=== PATIENT | male | born 1975 | race Caucasian/White ===

== ENCOUNTER 2022-05-20 19:13 | Emergency (ER) | payer SELFPAY ==
[~2022-05-20] VITALS: Ht 167.6 cm; Wt 108.9 kg
[2022-05-20 19:40] VITALS: BP 150/85
--- NOTE | 2022-05-20 19:43 | NUR ---
TO LOBBY A/W BED AMBULATORY
--- NOTE | 2022-05-20 21:53 | NUR ---
PATIENT AMBULATED TO THE RR
--- NOTE | 2022-05-20 21:55 | NUR ---
JANAY AMBULATED TO BED 1
--- NOTE | 2022-05-20 21:56 | NUR ---
LAB AT BEDSIDE
--- NOTE | 2022-05-20 22:06 | NUR ---
BP 188/93. PER PATIETN BP IS HIGH DUE TO BEIGN NERVOUS OF BEING IN THE HOSPITAL. PATIENT RQ TO RETAKE IN AN HOUR. AWARE.
[2022-05-20 22:18] LABS: BASOPHILS # (AUTO) 0.1 K/uL (0.00-0.22); BASOPHILS % (AUTO) 0.8 % (0.0-2.0); EOSINOPHILS # (AUTO) 0.2 K/uL (0-0.4); EOSINOPHILS % (AUTO) 1.5 % (0.0-4.0); HEMATOCRIT 33.9 % (36-52); HEMOGLOBIN 11.2 g/dL (12.0-18.0); LYMPHOCYTES # (AUTO) 3.8 K/uL (2.0-11.5); LYMPHOCYTES % (AUTO) 34.8 % (20.5-51.1); MEAN CORPUSCULAR HEMOGLOBIN 29 pg (27-31); MEAN CORPUSCULAR HGB CONC 33 g/dL (33-37); MEAN CORPUSCULAR VOLUME 86.7 fL (80-94); MONOCYTES # (AUTO) 1.5 K/uL (0.8-1.0); MONOCYTES % (AUTO) 14.1 % (1.7-9.3); NEUTROPHILS # (AUTO) 5.3 K/uL (1.8-7.7); NEUTROPHILS % (AUTO) 48.8 % (42.2-75.2); PLATELET COUNT (AUTO) 210 K/uL (140-450); RED BLOOD CELL COUNT(AUTO) 3.91 MIL/uL (4.20-6.10); WHITE BLOOD COUNT (AUTO) 10.8 K/uL (4.8-10.8)
[2022-05-20 22:19] LABS: APPEARANCE,URINE CLEAR (CLEAR); BILIRUBIN,URINE NEGATIVE (NEGATIVE); BLOOD, URINE NEGATIVE (NEGATIVE); COLOR,URINE YELLOW (YELLOW); LEUKOCYTE ESTERASE ,URINE 1+ (NEGATIVE); NITRITE, URINE NEGATIVE (NEGATIVE); UGLUCOSE NEGATIVE (NEGATIVE)
[2022-05-20 22:35] LABS: ANION GAP 11.1 (8-16); CARBON DIOXIDE 27.5 mmol/L (21-32); TOTAL BILIRUBIN 0.8 mg/dL (0.0-1.0)
[2022-05-20 22:37] LABS: POTASSIUM 2.6 mmol/L (3.5-5.1)
[2022-05-20] MEDS ORDERED: POTASSIUM CHLORIDE 10 MEQ TABER PO ONE (22:45)
--- NOTE | 2022-05-20 22:54 | NUR ---
46/M BIB SELF C/C HERBER LEG SWELLING X3 WEEKS. PER PATIETN PAIN IS 10/10 AND "FEELS LIKE PRESSURE". PER PATEITN SWELLING USUALLY SUBSIDES IN THE EVENING BUT HASNT GONE AWAY. PATIENT DENIES ANY SOB/CP/N/V/D/C AT THIS TIME. PATIETN PLACED IN GOWN IN BED. BED LOW AND LOCKED. ALL NEED MET DENIES PMHX, RX NKA
--- NOTE | 2022-05-20 22:56 | NUR ---
MEDICATED ORDERED. TOLERATED WELL/
[2022-05-20 23:03] LABS: RBC,URINE 0-5 /HPF (0-5)
--- NOTE | 2022-05-20 23:05 | NUR ---
JANAY AMBULATED TO THE AND BACK TO BED 1
--- NOTE | 2022-05-20 23:44 | NUR ---
REASSESSED BP 188/83. MADE AWARE.
[2022-05-20] MEDS ORDERED: lisinopriL 20 MG TAB PO ONE (23:50)
--- NOTE | 2022-05-21 00:50 | NUR ---
BP REASSESSED . MADE AWRE.
[2022-05-21] MEDS ORDERED: CLONIDINE HYDROCHLORIDE 0.1 MG TAB PO ONE (01:45)
[2022-05-21] MEDS ORDERED: cephALEXin 500 MG CAP PO ONE (01:45)
--- NOTE | 2022-05-21 01:49 | NUR ---
FAMILY REQUESTING UPDATE. NOTIFIED PRIMARY NURSE
[2022-05-21] MEDS ORDERED: HYDR-2853 PO (01:54)
--- NOTE | 2022-05-21 01:55 | NUR ---
BP 177/81. AWARE. ORDERS CARRIED OUT
--- NOTE | 2022-05-21 01:56 | NUR ---
SPOKE TO Jayne CRUZ SISTER. UPDATED ON JULIA STATUS.
[2022-05-21 02:19] VITALS: BP 178/88
--- NOTE | 2022-05-21 02:20 | NUR ---
BP 178/88. MD AWARE. Written and verbal after care instructions given and explained BY MD HAMILTON. Patient alert, oriented and verbalized understanding of instructions. Ambulatory with steady gait. All questions addressed prior to discharge BY MD HAMILTON. ID band removed. Patient advised to follow up with PMD. Rx of LISINOPRIL given.
== END 2022-05-21 02:20 | disposition home or self-care (01) ==
LOC: MED 19:13
DX: R60.0 Localized edema (principal); I10 Essential (primary) hypertension; F10.20 Alcohol dependence, uncomplicated; Z79.899 Other long term (current) drug therapy; Y90.6 Blood alcohol level of 120-199 mg/100 ml
CPT/HCPCS: 36415; 74176; 80053; 81001; 83880; 85025; 87086; 99285; G0482